=== PATIENT | male | born 1965 | race Caucasian/White ===

== ENCOUNTER 2019-04-11 00:36 | Emergency (ER) | payer SELFPAY ==
[~2019-04-11] VITALS: Ht 154.9 cm; Wt 65.3 kg
[2019-04-11 00:50] VITALS: BP 154/102
--- NOTE | 2019-04-11 00:51 | NUR ---
[facility] REPORTED PT FOUND ON THE [facility] TRYING TO RUN IN TO [facility] WHILE WHEELING HIMSELF W/ HIS W/C. PT CONFUSED. TALKING NON- SENSE. W/ BILATERAL BKA. PLACED ON A MONITOR.
--- NOTE | 2019-04-11 01:40 | NUR ---
Patient discharged in custody in stable condition. Written and verbal after care instructions given. Patient verbalizes understanding of instruction.
== END 2019-04-11 01:42 ==
LOC: ER 00:39
DX: F10.129 Alcohol abuse with intoxication, unspecified (principal); Y90.9 Presence of alcohol in blood, level not specified